=== PATIENT | female | born 1950 ===

== ENCOUNTER 2017-06-10 15:13 | Inpatient (IN) | payer OTHER ==
[2017-06-10] MEDS ORDERED: SENNOSIDES 1 TAB PO PRN (17:01)
[2017-06-10] MEDS ORDERED: BISACODYL 10 MG SUPP PR PRN (17:01)
[2017-06-10] MEDS: CHOLECALCIFEROL VIT D3 2,000 UNITS TAB/CAP PO SCH (18:15)
--- NOTE | 2017-06-10 20:17 | GHP ---
[f rep st] HISTORY AND PHYSICAL POST ADMISSION PHYSICIAN EVALUATION AND REHABILITATION TREATMENT PLAN DATE OF ADMISSION: 06/10/2017 DATE OF EVALUATION: 06/10/2017. TIME OF EVALUATION: 1840. REFERRING FACILITY: [facility]. REFERRING PHYSICIAN: Jacoby Cleveland MD IMPAIRMENT GROUP: 2.1. DATE OF ONSET: 06/08/2017. CONSULTING PHYSICIANS: None. REHABILITATION DIAGNOSIS: Debility, status post craniotomy and excision of meningioma. ETIOLOGIC DIAGNOSIS: Nontraumatic brain dysfunction. DATE OF SURGERY: 06/08/2017. 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 She came through surgery well without any complications. She had pain but has had rapid tapering of her medications from opiates to tramadol. She was participating in therapy and appropriate for inpatient rehabilitation. Postoperative MRI showed postsurgical changes from the left suboccipital craniotomy. There was gross total resection of the enhancing mass which had been on the dorsal clivus. There was mild surgical pneumocephalus and fluid collection. 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 LABORATORY: On 06/09/2017, BMP was normal. BMP and CBC were normal prior to surgery on 06/08/2017. PRECAUTIONS: She is a fall risk. ACTIVE COMORBIDITIES: There are no active tier 1, tier 2 or tier 3 comorbidities. PAST MEDICAL HISTORY: 1. Peptic ulcer disease. 2. H pylori. 3. Weakness and neuropathy on the left upper and lower extremities. 4. History of gluten intolerance. 5. Hypertension. ALLERGIES: 1. Sulfa antibiotics. 2. Gluten. PRE-HOSPITAL MEDICATIONS: I do not have a list. ADMISSION MEDICATIONS: 1. Cholecalciferol 5,000 units p.o. q.48 hours. 2. Cyanocobalamin 500 mcg p.o. daily. 3. Dexamethasone taper from 4 mg b.i.d. to 2 mg daily over 6 days. 4. Probiotic supplement daily. 5. Lisinopril 10 mg p.o. b.i.d. 6. Senna 1 tab p.o. b.i.d. p.r.n. 7. Tramadol 50 mg p.o. q.6 hours p.r.n. SOCIAL HISTORY: She is . She lives with her . She has no children. She has had a number of careers including working in [employer] and most recently in [employer] and [employer]. She has been a smoker but has recently quit. She is a nondrinker. FAMILY HISTORY: Noncontributory. REVIEW OF SYSTEMS: She feels like she still has weakness on the left side. She has had resolution of neuropathic pain in the left foot entirely. She still has some neuropathic symptoms, more tingling than a pain in the left upper extremity. She notices some reduced coordination in the left upper extremity. She denies headache, vision changes, difficulty swallowing, cough, dyspnea, nausea, vomiting, constipation, diarrhea, urinary frequency or dysuria , joint pain or joint swelling. She reports that she snores. Otherwise, a 10- point review of systems is negative. PHYSICAL EXAMINATION: VITAL SIGNS: Blood pressure is 120/75, heart rate is 71 , respiratory rate is 17, oxygen saturation is 93% on room air. Her weight is 57.3 kg for a body mass index of 21. GENERAL: This is a well-nourished, well- developed woman dressed in street clothes, sitting up on the bed, cooperative and in no acute distress. HEENT: Extraocular movements are intact. Pupils are equal, round and reactive to light. Mucous membranes are moist. Dentition is in good condition. She has a moderately crowded airway, Mallampati class III. NECK: Supple. HEART: There is a regular rate and rhythm with no murmurs , rubs or gallops. LUNGS: Clear to auscultation bilaterally. ABDOMEN: Soft, nontender, nondistended with normoactive bowel sounds. No hepatosplenomegaly. EXTREMITIES: There is no cyanosis, clubbing, or edema. NEUROLOGIC: She is alert and oriented x3. Cranial nerves 2-12 are grossly intact. She has 4/5 weakness of the left triceps and left hip flexor. Otherwise, motor strength is 5/5 overall. Sensation is intact throughout to light touch. Deep tendon reflexes are 2+ bilaterally at the biceps, patella and Achilles tendons. There is no pronator drift. [id number] is normal on the right and somewhat slowed and mildly ataxic on the left. Gait with a front-wheeled walker is within normal limits. SKIN: There is a well-approximated surgical scar from behind the left ear marking over the occipital region and then down the left side of the posterior neck to approximately the C7 level. There is no erythema and no drainage. CURRENT LEVEL OF FUNCTION PER THE PRE-ADMISSION SCREEN: Regarding diet, feeding and swallowing, she is on a regular diet texture with thin liquids. For grooming, she needed assistance. For bathing, she needed assistance. For dressing, she needed assistance. Toileting was accomplished with maximum assistance, but I think she was newly independent today. Bed mobility required minimal assist to contact guard assist, but she does not appear to require assistance on today's exam. Transfers required minimal assist. She used a front-wheeled walker. Seated balance required standby assist. Static standing balance required minimal assist and dynamic balance required minimal assist. Endurance was poor. She needs some rest breaks. She was able to ambulate 100 feet with a front-wheeled walker and minimal assist. She needed assist for stair climbing. Regarding communication, she was noted to have mildly impaired intelligibility. FUNCTIONAL CHANGES FROM THE PRE-ADMISSION SCREEN: She does not currently appear to need significant assistance with bed mobility, ambulation or transfers. IMPRESSION: This is a 67-year-old woman who underwent major left lateral approach occipital craniotomy and excision of a large meningioma, which was impinging on the brainstem and spinal cord. She had months of progressive neuropathic symptoms in her left upper and lower extremities as well as development of weakness. She has had a very good response to the surgery though she still has weakness of the left upper and lower extremities, ataxia of the left upper extremity and minor neuropathic symptoms of the left hand. Hospital course was otherwise uncomplicated. She has remarkably little pain. She is appropriate for inpatient rehabilitation. Her goal is to complete a rehabilitation stay and then go home with her and home versus outpatient therapies. For a safe discharge, she will need to achieve modified independence with mobility, activities of daily living, communication, cognition and medication management. Her incision will need to be clean and healing well with no signs of infection. She and her will need neurologic education. She will have therapy with physical therapy, occupational therapy, speech and language pathology for 60 minutes per day for each discipline on 5-7 days of the week. Her expected duration of stay is 7-10 days. Though based on today's exam, she may be able to leave after approximately 5 days. It is anticipated that upon discharge, she will continue to benefit from home health services including speech and language pathology, occupational therapy and physical therapy. PLAN: 1. Debility, status post craniotomy and excision of left foramen magnum meningioma on 06/08/2017. She has done very well postsurgically but will continue to benefit from PT and OT to optimize mobility and activities of daily living towards the independent or modified independent level. 2. Mild dysarthria has been improving. She will have assessment per Speech and Language Pathology. 3. Hypertension appears to be well controlled. Continue lisinopril. 4. Postsurgical management. She is on a dexamethasone taper over the next 6 days. She will be monitored for adequate wound healing. Pain management has been adequate with tramadol. 5. Gluten intolerance. Unclear whether there is actually a diagnosis of celiac disease but she reports that she had diarrhea until she stopped taking gluten. Continue gluten-free diet. 6. Prophylaxis. She appears to have excellent mobility. There is no hemiparesis. We will not initiate pharmacologic anticoagulation at present. /[id number]/MODL MTDD
[2017-06-10] MEDS: DEXAMETHASONE 4 MG TAB PO SCH (20:21)
[2017-06-10] MEDS: LISINOPRIL 10 MG TAB PO SCH (20:21)
[2017-06-10] MEDS: traMADol 50 MG TAB PO PRN (20:22)
[2017-06-11] MEDS: traMADol 50 MG TAB PO PRN ×2 (04:04→15:49)
[2017-06-11] MEDS: VSL#3 1 EACH CAP PO SCH (07:54)
[2017-06-11] MEDS: CYANO/VITAMIN B12 1000 MCG TAB PO SCH (07:54)
[2017-06-11] MEDS: LISINOPRIL 10 MG TAB PO SCH ×2 (07:55→20:27)
[2017-06-11] MEDS: DEXAMETHASONE 4 MG TAB PO SCH ×2 (07:55→20:27)
--- NOTE | 2017-06-11 13:31 | HOSPPROG ---
Hospitalist Progress Note Assessment/Plan: Assessment: 67 yo F p/w craniotomy for a symptomatic meningioma Plan: # Meningioma. S/p resection w/ crani in the L posterior occiput, surgical site CDI - reviewed H&P by Dr. Hurst for 06/11/17, recommends dex taper, ordered - paresis in LUE 4/5, paresthesia LUE persists - cont PT/OT # HTN. Chronic, cont lisinopril # GERD. Start PPI, PRN H2 Diet. Regular PPx. SCDs Code. Full Dispo. ADD uncertain, pending reassess by Dr. Hurst on 06/13 Subjective: patient reports great progress, using walker for mobility, moving bowels Objective: Vital Signs Temp Pulse Resp BP Pulse Ox 36.9 C 62 18 115/71 96 06/11/17 07:53 06/11/17 07:53 06/11/17 07:53 06/11/17 07:55 06/11/17 07:53 06/10/17 06/11/17 06/12/17 05:59 05:59 05:59 Intake Total 120 240 Balance 120 240 - Physical Exam Constitutional: no apparent distress, appears nourished, not in pain, No uncomfortable Cardiovascular: regular rate and rhythym, no murmur, rub, or gallop, No edema Respiratory: no respiratory distress, no rales or rhonchi, clear to auscultation Gastrointestinal: normoactive bowel sounds, soft, non-tender abdomen, no palpable masses, No distension Skin: other (surg site w/o erythema/induration/tenderness or ulceration) Neurologic: AAOx3, weakness (motor 4/5 LUE, 5/5 LLE), CN II-XII Intact, No sensation intact bilaterally (subj paresthesias LUE), No facial droop Psychiatric: interacting appropriately, not anxious, not encephalopathic, thought process linear ICD10 Worksheet Patient Problems: Problems Problem Status Onset S/P craniotomy Acute
[2017-06-11] MEDS: PANTOPRAZOLE SODIUM 40 MG TAB PO SCH (14:54)
[2017-06-12] MEDS: traMADol 50 MG TAB PO PRN ×2 (01:17→15:51)
[2017-06-12] MEDS: FAMOTIDINE 20 MG TAB PO PRN (07:29)
[2017-06-12] MEDS: DEXAMETHASONE 4 MG TAB PO SCH (07:29)
[2017-06-12] MEDS: LISINOPRIL 10 MG TAB PO SCH ×2 (07:30→20:40)
[2017-06-12] MEDS: VSL#3 1 EACH CAP PO SCH (07:30)
[2017-06-12] MEDS: PANTOPRAZOLE SODIUM 40 MG TAB PO SCH (07:31)
[2017-06-12] MEDS: CYANO/VITAMIN B12 1000 MCG TAB PO SCH (07:31)
--- NOTE | 2017-06-12 13:16 | HOSPPROG ---
Hospitalist Progress Note Assessment/Plan: Assessment: 67 yo F p/w craniotomy for symptomatic meningioma Plan: # Meningioma. S/p resection w/ crani in the L posterior occiput, surgical site CDI - cont dex taper, ordered - paresis in LUE improving, paresthesia distal LUE persists - cont PT/OT, using trekking poles for balance # HTN. Chronic, cont lisinopril # GERD. Started PPI, PRN H2 Diet. Regular PPx. SCDs Code. Full Dispo. ADD uncertain, pending reassess by Dr. Hurst on 06/13 Subjective: patient progressing well, ambulated outside today w/ trek poles, has yet to have BM Objective: Vital Signs Temp Pulse Resp BP Pulse Ox 36.8 C 72 16 132/74 H 98 06/12/17 06:39 06/12/17 06:39 06/12/17 06:39 06/12/17 07:30 06/12/17 06:39 06/11/17 06/12/17 06/13/17 05:59 05:59 05:59 Intake Total 120 530 630 Balance 120 530 630 - Physical Exam Constitutional: no apparent distress, appears nourished, not in pain Cardiovascular: regular rate and rhythym, no murmur, rub, or gallop, No edema Respiratory: no respiratory distress, no rales or rhonchi, clear to auscultation Gastrointestinal: normoactive bowel sounds, soft, non-tender abdomen, no palpable masses, No distension Neurologic: AAOx3, No sensation intact bilaterally (L hand distal fingers w/ subjective paresthesias), No weakness (motor 5/5 bilat UE w/ some subtlely limited ROM on posterior extension of L shoulder), No facial droop Psychiatric: interacting appropriately, not anxious, not encephalopathic, thought process linear ICD10 Worksheet Patient Problems: Problems Problem Status Onset S/P craniotomy Acute
[2017-06-12] MEDS: CHOLECALCIFEROL VIT D3 2,000 UNITS TAB/CAP PO SCH (15:52)
[2017-06-12] MEDS: DEXAMETHASONE 2 MG TAB PO SCH (20:42)
[2017-06-12] MEDS ORDERED: BACITRACIN OINTMENT 1 PACKET TP PRN (22:21)
[2017-06-13] MEDS: traMADol 50 MG TAB PO PRN ×2 (00:13→20:04)
[2017-06-13] MEDS: VSL#3 1 EACH CAP PO SCH (08:39)
[2017-06-13] MEDS: PANTOPRAZOLE SODIUM 40 MG TAB PO SCH (08:41)
[2017-06-13] MEDS: CYANO/VITAMIN B12 1000 MCG TAB PO SCH (08:41)
[2017-06-13] MEDS: DEXAMETHASONE 2 MG TAB PO SCH ×2 (08:41→20:02)
--- NOTE | 2017-06-13 09:08 | PDOREHIP ---
Admission [facility] - Admission - 3 Day Assessment Period Admission Date/Day 1: 06/10/17 Day 2: 06/11/17 Day 3: 06/12/17 - Active Diagnoses Comorbidities and Co-existing Conditions at Admission: 45640. None of the Above - Skin Conditions Unhealed Pressure Ulcer (1 or more/Stage 1 or >)-Admission: 0. No
--- NOTE | 2017-06-13 09:09 | SOAPPROG ---
[facility] Progress Note Assessment/Plan: Assessment: * Debility, status post craniotomy and excision of left foramen magnum meningioma on 06/08/2017. * Has been made independent in her room on 06/12/2017, with tracking poles, 7:00 a.m. To 10:00 p.m.. * Continue PT and OT to optimize mobility and activities of daily living towards the independent or modified independent level. * Mild dysarthria has been improving. * Continue Speech and Language Pathology. Mild deficit to alternating attention has been noted. * Hypertension appears to be well controlled. Continue lisinopril. * Postsurgical management. She is on a dexamethasone taper through 06/16/2017. She will be monitored for adequate wound healing. Pain management has been adequate with tramadol. * Constipation. Likely due to tramadol. Add polyethylene glycol QD. * Gluten intolerance. Unclear whether there is actually a diagnosis of celiac disease but she reports that she had diarrhea until she stopped taking gluten. Continue gluten-free diet. * Prophylaxis. She appears to have excellent mobility. There is no hemiparesis. We will not initiate pharmacologic anticoagulation at present. Doing well. Likely discharge home with [id number]. 06/13/17 13:12 Subjective: No complaints. Reports that neuropathy in the left upper extremity is resolving "on inch at a time"from proximal to distal. Complains of constipation x1 day. Otherwise without complaints. Objective: Vital Signs Temp Pulse Resp BP Pulse Ox 37.0 C 65 16 118/70 94 06/13/17 06:22 06/13/17 06:22 06/13/17 06:22 06/13/17 06:22 06/13/17 06:22 06/12/17 06/13/17 06/14/17 05:59 05:59 05:59 Intake Total 530 1170 Balance 530 1170 Physical Exam - Physical Exam General Appearance: WD/WN, alert, no apparent distress Respiratory: normal breath sounds, No crackles, No rhonchi, No wheezing Cardiac/Chest: regular rate, rhythm, No edema Skin: normal color, warm/dry Neuro/Psych: alert, normal mood/affect, oriented x 3, abnormal gait (Mildly wide -based with trekking poles.) ICD10 Worksheet Patient Problems: Problems Problem Status Onset S/P craniotomy Acute
[2017-06-13] MEDS: LISINOPRIL 10 MG TAB PO SCH ×2 (10:00→20:02)
[2017-06-13] MEDS: POLYETHYLENE GLYCOL 3350 17 GM PKT PO SCH (16:37)
[2017-06-13] MEDS: FAMOTIDINE 20 MG TAB PO PRN (20:01)
[2017-06-14] MEDS: CYANO/VITAMIN B12 1000 MCG TAB PO SCH (08:53)
[2017-06-14] MEDS: DEXAMETHASONE 2 MG TAB PO SCH (08:54)
[2017-06-14] MEDS: VSL#3 1 EACH CAP PO SCH (08:54)
[2017-06-14] MEDS: PANTOPRAZOLE SODIUM 40 MG TAB PO SCH (08:55)
[2017-06-14] MEDS: LISINOPRIL 10 MG TAB PO SCH ×2 (08:55→20:59)
[2017-06-14] MEDS: POLYETHYLENE GLYCOL 3350 17 GM PKT PO SCH (09:07)
--- NOTE | 2017-06-14 10:47 | SOAPPROG ---
[facility] Progress Note Assessment/Plan: Assessment: * Debility, status post craniotomy and excision of left foramen magnum meningioma on 06/08/2017. * Initial functional independence measure of 111 on 06/14/2017. Has been made independent in her room on 06/12/2017, with trekking poles, 7:00 a.m. To 10:00 p.m.; independent on the unit as of 06/14/2017. Ambulated 500 ft standby assist with trekking poles. Independent with activities of daily living. Supervision for transfers. Did laundry with supervision. * Continue PT and OT. Will benefit from higher level balance activities as well as more work on stair climbing. * Mild dysarthria has been improving. * Continue Speech and Language Pathology. Mild deficit to alternating attention has been noted. * Hypertension appears to be well controlled. Continue lisinopril. * Postsurgical management. She is on a dexamethasone taper through 06/16/2017. She will be monitored for adequate wound healing. Pain management has been adequate with tramadol. * Constipation. Likely due to tramadol. Add polyethylene glycol QD. * Gluten intolerance. Unclear whether there is actually a diagnosis of celiac disease but she reports that she had diarrhea until she stopped taking gluten. Continue gluten-free diet. * Prophylaxis. She appears to have excellent mobility. There is no hemiparesis. We will not initiate pharmacologic anticoagulation at present. Doing well. Likely discharge home with 06/17/2017. Follow-up with Neurosurgeon Dr. Cleveland on 06/20/3017. Attended staffing, 15 min. Discussed with case management, dietitian, nursing, PT, OT, SHUTDOWN COORDINATOR. Plans to discharge on 06/16/2017, home with as well as other family and friends to assist. She will have outpatient physical therapy. 06/14/17 13:38 Subjective: No complaints. Has been made independent on the unit. Reports nerve pain in her left upper extremity is almost completely gone, only present in approximately the last 0.5 in of her fingers. She says she has some in and some itching at her incision. Objective: Vital Signs Temp Pulse Resp BP Pulse Ox 37.0 C 67 16 130/70 H 96 06/14/17 08:00 06/14/17 08:00 06/14/17 08:00 06/14/17 08:55 06/14/17 08:00 06/13/17 06/14/17 06/15/17 05:59 05:59 05:59 Intake Total 1170 1979 Balance 1170 1979 - Time Spent With Patient Time Spent With Patient: Greater than 35 min floor time today, including more than 50% of time in coordination of care during staffing meeting, and counseling patient. Physical Exam - Physical Exam General Appearance: WD/WN, alert, no apparent distress Respiratory: No respiratory distress, No accessory muscle use Skin: normal color, warm/dry, other (Left occipital and central posterior neck incision with sutures present, no dehiscence or discharge, minimal erythema along incision) Neuro/Psych: no motor/sensory deficits, alert, normal mood/affect, oriented x 3 ICD10 Worksheet Patient Problems: Problems Problem Status Onset S/P craniotomy Acute
[2017-06-14] MEDS: CHOLECALCIFEROL VIT D3 2,000 UNITS TAB/CAP PO SCH (17:36)
[2017-06-14] MEDS: traMADol 50 MG TAB PO PRN (20:59)
[2017-06-15] MEDS: CYANO/VITAMIN B12 1000 MCG TAB PO SCH (08:32)
[2017-06-15] MEDS: DEXAMETHASONE 2 MG TAB PO SCH (08:33)
[2017-06-15] MEDS: LISINOPRIL 10 MG TAB PO SCH ×2 (08:34→19:59)
[2017-06-15] MEDS: VSL#3 1 EACH CAP PO SCH (08:34)
[2017-06-15] MEDS: PANTOPRAZOLE SODIUM 40 MG TAB PO SCH (08:35)
[2017-06-15] MEDS: POLYETHYLENE GLYCOL 3350 17 GM PKT PO SCH (08:35)
--- NOTE | 2017-06-15 12:53 | SOAPPROG ---
[facility] Progress Note Assessment/Plan: Assessment: * Debility, status post craniotomy and excision of left foramen magnum meningioma on 06/08/2017. * Initial functional independence measure of 111 on 06/14/2017. Has been made independent in her room on 06/12/2017, with trekking poles, 7:00 a.m. To 10:00 p.m.; independent on the unit as of 06/14/2017. Ambulated 500 ft standby assist with trekking poles. Independent with activities of daily living. Supervision for transfers. Did laundry with supervision. * Continue PT and OT. Will benefit from higher level balance activities as well as more work on stair climbing. * Mild dysarthria has been improving. * Continue Speech and Language Pathology. Mild deficit to alternating attention has been noted. * Hypertension appears to be well controlled. Continue lisinopril. * Postsurgical management. She is on a dexamethasone taper through 06/16/2017. She will be monitored for adequate wound healing. Pain management has been adequate with tramadol. * Constipation. Likely due to tramadol. Continue polyethylene glycol QD. * Gluten intolerance. Unclear whether there is actually a diagnosis of celiac disease but she reports that she had diarrhea until she stopped taking gluten. Continue gluten-free diet. * Prophylaxis. She appears to have excellent mobility. There is no hemiparesis. We will not initiate pharmacologic anticoagulation at present. Follow-up with Neurosurgeon Dr. Cleveland on 06/20/3017. Plans to discharge on 06/16/2017, home with as well as other family and friends to assist. She will have outpatient physical therapy. 06/15/17 12:51 Subjective: No complaints. Doing well. Has moved to room 418 where she is independent . Happy to be going home tomorrow. Objective: Vital Signs Temp Pulse Resp BP Pulse Ox 36.8 C 60 16 143/74 H 98 06/15/17 05:41 06/15/17 05:41 06/15/17 05:41 06/15/17 08:34 06/15/17 05:41 06/14/17 06/15/17 06/16/17 05:59 05:59 05:59 Intake Total 1979 1060 240 Balance 1979 1060 240 Physical Exam - Physical Exam General Appearance: WD/WN, alert, no apparent distress Respiratory: No respiratory distress, No accessory muscle use Skin: normal color, warm/dry Neuro/Psych: alert, normal mood/affect, oriented x 3, No abnormal gait ICD10 Worksheet Patient Problems: Problems Problem Status Onset S/P craniotomy Acute
--- NOTE | 2017-06-15 12:54 | PDOREHIP ---
Admission [facility] - Admission - 3 Day Assessment Period Admission Date/Day 1: 06/10/17 Day 2: 06/11/17 Day 3: 06/12/17 Discharge [facility] - Discharge - 3 Day Assessment Period 2 Days Prior to Anticipated Discharge Date: 06/14/17 1 Day Prior to Anticipated Discharge Date: 06/15/17 Anticipated Discharge Date: 06/16/17 - Discharge Skin Conditions Unhealed Pressure Ulcer (1 or more/Stage 1 or >)-Discharge: 0. No
[2017-06-15] MEDS: traMADol 50 MG TAB PO PRN (19:58)
[2017-06-16] MEDS: VSL#3 1 EACH CAP PO SCH (08:33)
[2017-06-16] MEDS: POLYETHYLENE GLYCOL 3350 17 GM PKT PO SCH (08:33)
[2017-06-16] MEDS: DEXAMETHASONE 2 MG TAB PO SCH (08:34)
[2017-06-16] MEDS: CYANO/VITAMIN B12 1000 MCG TAB PO SCH (08:34)
[2017-06-16] MEDS: PANTOPRAZOLE SODIUM 40 MG TAB PO SCH (08:34)
[2017-06-16] MEDS: LISINOPRIL 10 MG TAB PO SCH (09:51)
[2017-06-16 11:08] VITALS: BP 93/52
--- NOTE | 2017-06-16 14:18 | GDS ---
[f rep st] DISCHARGE SUMMARY ADMITTING DIAGNOSES: Debility, status post craniotomy and resection of meningioma in the left posterior occiput. DISCHARGE DIAGNOSES: Debility, status post craniotomy and resection of meningioma in the left posterior occiput. OTHER DISCHARGE DIAGNOSES: 1. Mild dysarthria. 2. Hypertension. CONSULTATIONS: None. PROCEDURES: None. COMPLICATIONS: None. HISTORY AND HOSPITAL COURSE: This patient was admitted from [facility], where she had undergone surgery with neurosurgeon, Dr. Cleveland , on 06/08/2017. 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 She was participating in therapy and medically stable and discharged to inpatient rehabilitation. She had rapid improvement. Her initial functional independence measure on 06/14, four days after admission, was 111, which is consistent with independent level of function. She had been independent in her room with trekking poles since 06/12/2017, and then she was made independent on the unit on 06/14/2017. She was able to ambulate 500 feet with standby assist using trekking poles. She was independent with activities of daily living and had supervision for transfers. Speech Therapy treated her for mild dysarthria, as well as a mild deficit to alternating attention. Her hypertension was well controlled on lisinopril. She had a low blood pressure on the morning of discharge, and lisinopril was held. She reported that she had fluctuating blood pressures and had an approximately 25-pound weight loss through the course of her debility due to the meningioma and surgery , and that her blood pressure had been running lower. Pain was adequately controlled with tramadol, which she typically was using at bedtime. LABS AND STUDIES: none. CONDITION ON DISCHARGE: Good. ACTIVITY: Ad tish. DIET: Regular. FOLLOWUP: Date of next appointment: She will follow up with neurosurgeon, Dr. Cleveland, on 06/21/2017 and with her primary care provider, Dr. Harris, on 2017. DISCHARGE MEDICATIONS: 1. Cholecalciferol 5000 units p.o. q.48 hours. 2. Cyanocobalamin 1000 mcg p.o. daily. 3. Probiotic supplement daily. 4. Lisinopril 10 mg p.o. b.i.d. 5. Pantoprazole 40 mg p.o. daily. 6. Polyethylene glycol 17 g p.o. daily. 7. Senna 1 tab p.o. b.i.d. 8. Tramadol 50 mg p.o. q.6 hours p.r.n. Issues to be addressed at followup: 1. Functional status: She will continue outpatient physical therapy and can follow up with her primary care provider regarding her progress. 2. Hypertension with a low blood pressure on the day of discharge. She can follow up with her primary care provider regarding continued antihypertensive therapy and appropriate dosing. /[id number]/MODL MTDD
== END 2017-06-16 15:24 | disposition home or self-care (01) | DRG 949 ==
LOC: BREH 15:13
PROVIDERS: ADMIT Internal Medicine Hospice and Palliative Medicine; ATTEND Internal Medicine Hospice and Palliative Medicine
PROC: F08Z4ZZ Home Management Treatment (ICD-10-PCS; principal; 2017-06-10)
PROC: F07M3ZZ Motor Function Treatment of Musculoskeletal System - Whole Body (ICD-10-PCS; principal; 2017-06-10)
PROC: F0636ZZ Communicative/Cognitive Integration Skills Treatment of Neurological System - Whole Body (ICD-10-PCS; principal; 2017-06-10)
DX: Z48.811 Encounter for surgical aftercare following surgery on the nervous system (principal); R47.1 Dysarthria and anarthria; G81.94 Hemiplegia, unspecified affecting left nondominant side; R27.8 Other lack of coordination; G62.89 Other specified polyneuropathies; I10 Essential (primary) hypertension; K90.41 Non-celiac gluten sensitivity; K30 Functional dyspepsia; R41.840 Attention and concentration deficit; K21.9 Gastro-esophageal reflux disease without esophagitis; K59.00 Constipation, unspecified
CPT/HCPCS: 92507-GN; 92522-GN; 97110-GO; 97110-GP; 97112-GP; 97116-GP; 97161-GP; 97166-GO; 97530-GO; 97530-GP; 97535-GO